=== PATIENT | female | born 1960 | race Caucasian/White ===

== ENCOUNTER → 2020-12-25 | Outpatient (CLI) | payer BC ==
[~2020-12-25] MED LIST: AMLODIPINE BESY10 MG PO; ASA81BEC PO; ATACAND32 MG PO; GLIPIZIDE ER5 MG PO; MAGNESIUM400 MG PO; METFORMIN HCL500 M3 PO; PROTONIX40 M2 PO; TOPROL XL50 MG PO; VITAMIN D325 MC3 PO
== END ==
LOC: LAB 08:06
PROVIDERS: ATTEND Specialist
DX: Z01.812 Encounter for preprocedural laboratory examination (principal); Z20.822 Contact with and (suspected) exposure to COVID-19

== ENCOUNTER → 2020-12-29 | Outpatient (CLI) | payer BC ==
[~2020-12-29] VITALS: Ht 175.3 cm; Wt 99.8 kg
--- NOTE | 2021-01-02 16:06 | PATH ---
[facility] [address] [place] [address] PATHOLOGY RPT PROCEDURE Name: FABIOLA PARKER Minerva Room #: REG [facility] [place].#: [id number] Admission: 12/29/20 Date of : 64 Discharge: Report #: [id number] Path Case #: [id number] [facility] Accession Number: [id number] . 01 Material submitted: . stomach - BX GASTRITIS, HX OF H. PYLORI TREATED TWICE . 01 Clinical history: . GERD GASTRITIS . 02 Diagnosis: Gastric mucosa, gastritis, endoscopic biopsy: - Helicobacter pylori-induced moderate active gastritis. - Negative for intestinal metaplasia or atrophy or dysplasia. - Numerous Helicobacter pylori organisms present on the properly controlled immunohistochemical stain. (IUV:facility technician; 01/02/2021) MBR 01/02/2021 1352 Local . 02 Electronically signed: . May Costa MD, Pathologist NPI- [id number] . 01 Gross description: . The specimen is received in formalin, labeled "Fabiola Parker, biopsy gastritis, history of H. pylori treated twice". Received are five segments of pale solomon soft tissue ranging in size from 0.3 to 0.8 cm in maximum dimensions. The specimen is submitted entirely in cassette A1. (CAA; 01/01/2021) QAC/QAC 01/01/2021 1100 Local . 02 Pathologist provided ICD-10: K29.70 . 02 CPT . 739146, [id number] Specimen Comment: A courtesy copy of this report has been sent to [phone] Specimen Comment: Report sent to Performed at: [address], [place] [id number] MD Yung Schwartz MD Phone: [phone] Performed at: [address] [id number] MD May Costa MD Phone: [phone]
--- NOTE | 2021-01-03 08:07 | P ---
[facility] [place] [address] PROCEDURE REPORT Name: FABIOLA PAN Room #: REG [facility] Shannan#: [id number] Admission: 12/29/20 Attend Phys: Nakul Martin Discharge: Date of : 64 Report #: [id number] THIS REPORT FOR: cc: Ruthy Chang MD, Sequita MD [place],Nakul Craig MD ~ DATE OF SERVICE: 12/29/2020 PROCEDURE PERFORMED: Upper endoscopy with biopsies. HISTORY OF PRESENT ILLNESS: The patient is a 60-year-old female with a history of gastroesophageal reflux disease, currently on Protonix b.i.d., intermittent nausea, intermittent heartburn symptoms. Denies any dysphagia, no previous history of upper endoscopy Apparently, the patient has been diagnosed twice with H. pylori and treated twice with antibiotics, one by a breath test, the other by stool test. Apparently, I do not have a copy of these results. Plan is for upper endoscopy. DESCRIPTION OF PROCEDURE: The risks and benefits of the procedure were explained to the patient, those risks including but not limited to bleeding, perforation and the risk of sedation. She understood these risks and gave informed consent. Sedation was given using propofol per anesthesia. Next, using a standard Olympus upper endoscope, the scope was placed in the patient's mouth and advanced under direct vision through the esophagus, stomach and into the second portion of the duodenum. The larynx was normal in appearance. The esophagus was normal throughout. The GE junction was normal. The patient does appear to have a patulous type lower esophageal sphincter. No evidence of esophagitis. Upon entering the stomach, a small hiatal hernia was noted. There was a mild gastritis noted in the body and the antrum. No evidence of ulcerations or erosions. Multiple biopsies were obtained to rule out ongoing potential H. pylori. The pylorus was normal and patent. The duodenal bulb, first and second portion were all normal. The scope was then withdrawn and the procedure terminated. The patient tolerated the procedure well. IMPRESSION: 1. Small hiatal hernia. 2. Mild gastritis. 3. Patulous lower esophageal sphincter appearing patulous. 4. Otherwise, normal upper endoscopy. RECOMMENDATIONS: 1. Await biopsy results. 2. Continue b.i.d. PPI therapy. If the patient's biopsies are positive for H. pylori, again may need to review the previous antibiotic regimen and change in the future. [address] [address] PROCEDURE REPORT Name: FABIOLA PAN Room #: REG [facility] Campbell#: [id number] Admission: 12/29/20 Attend Phys: Nakul Martin Discharge: Date of : 64 Report #: [id number] Thank you for allowing me to participate in her care. <ELECTRONICALLY SIGNED> By: Nakul Lynch MD 01/03/21 0807 [id number] Nakul Lynch MD /gary
== END | disposition home or self-care (01) ==
LOC: GI
PROVIDERS: ATTEND Specialist
DX: K29.70 Gastritis, unspecified, without bleeding (principal); B96.81 Helicobacter pylori [H. pylori] as the cause of diseases classified elsewhere; K21.9 Gastro-esophageal reflux disease without esophagitis; K44.9 Diaphragmatic hernia without obstruction or gangrene; K22.4 Dyskinesia of esophagus; I10 Essential (primary) hypertension; E11.9 Type 2 diabetes mellitus without complications; Z98.890 Other specified postprocedural states; Z79.899 Other long term (current) drug therapy; Z87.891 Personal history of nicotine dependence; Z90.710 Acquired absence of both cervix and uterus; Z88.0 Allergy status to penicillin
CPT/HCPCS: 62110; 62900